=== PATIENT | female | born 1990 | race Caucasian/White ===

== ENCOUNTER 2018-06-26 19:56 | Emergency (ER) | payer BC, OTHER ==
[2018-06-26 20:42] VITALS: BP 130/79
--- NOTE | 2018-06-26 21:29 | UC ---
Skin Complaint HPI - HPI Summary HPI Summary: Pt presents with c/o of erythematous, pin prick raised rash to bilateral inner thighs and " up butt cheeks". Pt sates she went camping this past weekend and noticed sudden onset of puritic rash to bilateral inner thighs ~ 2 days after beginning of camping trip. Pt states that rash was also on neck but that has since resolved. Pt's complaint is that rash is "very itchy". - History of Current Complaint Chief Complaint: UCSkin Time Seen by Provider: 06/26/18 21:00 Stated Complaint: SKIN CONCERN Hx Obtained From: Patient Hx Last Menstrual Period: 06/19/18 ?: No Onset/Duration: Sudden Onset, Lasting Days, Still Present Skin Exposure Onset/Duration: Days Ago Timing: Constant Onset Severity: Mild Current Severity: Mild Pain Intensity: 0 Pain Scale Used: 0-10 Numeric Location: Discrete - bilateral inner thighs and gluteal fold Character: Pruritus, Redness Aggravating Factor(s): Touch Alleviating Factor(s): Nothing Associated Signs & Symptoms: Positive: Rash Related History: Possible Reaction to: Environmental Exposure - Allergy/Home Medications Allergies/Adverse Reactions: Allergies Allergy/AdvReac Type Severity Reaction Status Date / Time No Known Allergies Allergy Verified 06/26/18 20:34 Home Medications: Home Medications Metformin HCl 100 mg PO DAILY 06/26/18 [History Confirmed 06/26/18] Norethindrone-E.estradiol-Iron [Blisovi Fe 1.5-30 Tablet] 1 tab PO DAILY [History Confirmed 06/26/18] Spironolactone 50 mg PO DAILY 06/26/18 [History Confirmed 06/26/18] Topiramate 100 mg PO DAILY 06/26/18 [History Confirmed 06/26/18] Review of Systems Constitutional: Negative Skin: Rash Eyes: Negative ENT: Negative Respiratory: Negative Cardiovascular: Negative Gastrointestinal: Negative Genitourinary: Negative Motor: Negative Neurovascular: Negative Musculoskeletal: Negative Neurological: Negative Psychological: Negative Is Patient Immunocompromised?: No All Other Systems Reviewed And Are Negative: Yes PMH/Surg Hx/FS Hx/Imm Hx Previously Healthy: Yes - Surgical History Surgical History: Yes Surgery Procedure, Year, and Place: lumpectomy - Family History Known Family History: Positive: Cardiac Disease - Social History Occupation: Employed Full-time Lives: With Family Alcohol Use: None Substance Use Type: None Smoking Status (MU): Never Smoked Tobacco Have You Smoked in the Last Year: No Physical Exam Triage Information Reviewed: Yes Appearance: Well-Appearing Vital Signs: Initial Vital Signs Temp 98.8 F 06/26/18 20:37 Pulse 79 06/26/18 20:37 Resp 14 06/26/18 20:37 BP 130/79 06/26/18 20:37 Pulse Ox 98 06/26/18 20:37 Vital Signs Reviewed: Yes Eye Exam: Normal ENT Exam: Normal ENT: Positive: Hearing grossly normal Dental Exam: Normal Neck exam: Normal Respiratory: Positive: No respiratory distress Musculoskeletal Exam: Normal Neurological Exam: Normal Psychological Exam: Normal Skin: Positive: rashes - bilateral inner thighs pin prick, erythematous, slightly raised, Course/Dx - Differential Diagnoses - Skin Complaint Differential Diagnoses: Contact Dermatitis, Poison Wendy, Tinea - Diagnoses Provider Diagnoses: contact dermatitis Discharge - Sign-Out/Discharge Documenting (check all that apply): Patient Departure All imaging exams completed and their final reports reviewed: No Studies - Discharge Plan Condition: Stable Disposition: HOME Prescriptions: predniSONE TAB* [Deltasone 20 MG TAB*] 20 mg PO DAILY #4 tab Patient Education Materials: Contact Dermatitis (ED) Referrals: Harika Calixto MD [Primary Care Provider] - If Needed - Billing Disposition and Condition Condition: STABLE Disposition: Home
== END 2018-06-26 21:20 | disposition home or self-care (01) ==
LOC: UCCORT 19:56
DX: L25.9 Unspecified contact dermatitis, unspecified cause (principal)
CPT/HCPCS: 99212; G0463